=== PATIENT | male | born 1990 | race Caucasian/White ===

== ENCOUNTER 2017-03-15 11:29 | Emergency (ER) | payer OTHER ==
[2017-03-15 11:35] VITALS: TEMP 98.1
--- NOTE | 2017-03-15 11:52 | EDPHY ---
H & P Time Seen by Provider: 03/15/17 11:51 HPI/ROS: Chief complaint. Racing heart, shortness of breath HPI. 26-year-old male presents emergency department with episodes of heart racing. He describes episodes of occurring at night and beginning with eyes watering and rushing sound. He feels his heart is weak in beating fast. He thinks this may be a panic attack though does not have a history. It has occurred the last 2 nights and then he had an episode 2 weeks ago as well as about a month ago. A leaves him feeling slightly weak generally the next day. Symptoms occur at night and then basically other than weakness the next day he is fine. He has been hiking without difficulty. He wonders if it is associated with after eating. Denies cough, fever, recent travel come unusual leg symptoms. He denies chest discomfort but has occasional rambling sound in his chest. He feels that he at times short of breath. He also has a toothache. ROS Constitutional. no fever/chills, no weakness Eyes. no problems with vision ENT. Left tooth ache Cardiovascular. Rumbling in chest with fast heart beat Respiratory. Shortness of breath without cough Abdominal. no abdominal pain, no nausea/vomiting, no diarrhea . no problems urinating MS. no calf pain/swelling, no neck/back pain, no joint pain Skin. no rash Lymph. no swollen glands Neuro. no headache, no dizziness, no difficulty walking or with speech Past Medical/Surgical History: Healthy Social History: Single, daily smoker, no alcohol Smoking Status: Current every day smoker Physical Exam: General Appearance: Alert well-developed male mild distress vital signs are stable Eyes: Pupils equal and round no pallor or injection. ENT, Mouth: Mucous membranes are moist. Left 2nd premolar tender but no obvious swelling or abscess. No obvious dental trauma Respiratory: There are no retractions, lungs are clear to auscultation. Cardiovascular: Regular rate and rhythm. Gastrointestinal: Abdomen is soft and nontender, no masses, bowel sounds normal. Neurological: Awake and alert, sensory and motor exams grossly normal. Skin: Warm and dry, no rashes. Musculoskeletal: Neck is supple nontender. Extremities symmetrical, full range of motion. Psychiatric: Patient is oriented X 3, there is no agitation. Constitutional: Initial Vital Signs Temperature (C) 36.7 C 03/15/17 11:29 Heart Rate 94 03/15/17 11:29 Respiratory Rate 18 03/15/17 11:29 Blood Pressure 143/86 H 03/15/17 11:29 O2 Sat (%) 98 03/15/17 11:29 Allergies/Adverse Reactions: No Known Allergies Allergy (Unverified 03/15/17 11:35) Home Medications: Medication Instructions Recorded LORazepam [Ativan] 1 mg PO Q6-8PRN PRN #7 tab 03/15/17 Medical Decision Making - Diagnostics EKG Interpretation: EKG interpreted by me shows normal sinus rhythm with normal interval and axis. QRS is normal there is no significant ST elevation or depression. No arrhythmia. The rate is 74 Imaging Results: Imaging Impressions Chest X-Ray 03/15/17 12:06 Impression: Normal chest x-ray. One-view chest x-ray reviewed by me is normal Procedures: IV normal saline, monitor ED Course/Re-evaluation: Re-evaluation 1:25 p.m.. The patient and I discussed imaging lab EKG results. We discussed treatment plan including criteria for return importance of follow- up further evaluation. He expresses understanding and agreement Differential Diagnosis: I have considered acute coronary syndrome, pulmonary embolus, pneumonia, anxiety. - Data Points Laboratory Results: Laboratory Results 03/15/17 12:00 03/15/17 12:00 03/15/17 03/15/17 03/15/17 12:00 12:00 12:00 WBC 4.10 10^3/uL 10^3/uL (3.80-9.50) RBC 4.87 10^6/uL 10^6/uL (4.40-6.38) Hgb 15.8 g/dL g/dL (13.7-17.5) Hct 43.5 % % (40.0-51.0) MCV 89.3 fL fL (81.5-99.8) MCH 32.4 pg pg (27.9-34.1) MCHC 36.3 g/dL g/dL (32.4-36.7) RDW 11.9 % % (11.5-15.2) Plt Count 206 10^3/uL 10^3/uL (150-400) MPV 9.9 fL fL (8.7-11.7) Neut % (Auto) 39.2 % L % (39.3-74.2) Lymph % (Auto) 47.6 % H % (15.0-45.0) Good[place] % (Auto) 11.5 % % (4.5-13.0) Eos % (Auto) 1.0 % % (0.6-7.6) Baso % (Auto) 0.5 % % (0.3-1.7) Nucleat RBC Rel Count 0.0 % % (0.0-0.2) Absolute Neuts (auto) 1.61 10^3/uL L 10^3/uL (1.70-6.50) Absolute Lymphs (auto) 1.95 10^3/uL 10^3/uL (1.00-3.00) Absolute Monos (auto) 0.47 10^3/uL 10^3/uL (0.30-0.80) Absolute Eos (auto) 0.04 10^3/uL 10^3/uL (0.03-0.40) Absolute Basos (auto) 0.02 10^3/uL 10^3/uL (0.02-0.10) Absolute Nucleated RBC 0.00 10^3/uL 10^3/uL (0-0.01) Immature Gran % 0.2 % % (0.0-1.1) Immature Gran # 0.01 10^3/uL 10^3/uL (0.00-0.10) D-Dimer < 0.27 ug/mLFEU ug/mLFEU (0.00-0.50) Sodium 140 mEq/L mEq/L (134-144) Potassium 3.8 mEq/L mEq/L (3.5-5.2) Chloride 105 mEq/L mEq/L (97-110) Carbon Dioxide 22 mEq/l mEq/l (22-31) Anion Gap 13 mEq/L mEq/L (8-16) BUN 11 mg/dL mg/dL (7-23) Creatinine 0.9 mg/dL mg/dL (0.7-1.3) Estimated GFR > 60 Glucose 92 mg/dL mg/dL (70-100) Calcium 9.4 mg/dL mg/dL (8.5-10.4) Troponin I < 0.012 ng/mL ng/mL (0.000-0.034) Lipase 61 IU/L IU/L (23-300) Departure - Departure Disposition: Home, Routine, Self-Care Clinical Impression: Chest pain Qualifiers: Chest pain type: unspecified Qualified Code(s): R07.9 - Chest pain, unspecified Condition: Good Instructions: Chest Pain (ED) Additional Instructions: Easy activity. Take 1 Ativan pill with symptoms of chest discomfort and trouble breathing. Return to the emergency department for worsening chest discomfort or trouble breathing. Call Dr. Delacruz's office on Friday to move appointment up for further evaluation in the next 3-4 days. Referrals: ANA DELACRUZ [Primary Care Provider] - 2-3 days, call for appt. Prescriptions: LORazepam [Ativan] 1 mg PO Q6-8PRN PRN #7 tab PRN Reason: Anxiety
[2017-03-15 12:12] LABS: PLATELET COUNT 206 10^3/uL (150-400)
--- NOTE | 2017-03-15 12:24 | CPEKG ---
Heart Rate: 74 RR Interval: 811 P-R Interval: 140 QRSD Interval: 90 QT Interval: 380 QTC Interval: 422 P Green[place]: 57 QRS Greenwood: 80 T Wave Greenwood: 44 EKG Severity - NORMAL ECG - EKG Impression: SINUS RHYTHM Electronically Signed By: Prem Hale 15-Mar-2017 15:15:43
[2017-03-15 14:03] VITALS: BP 121/63; PULSE 54; RESP 16; O2SAT 96
== END 2017-03-15 14:01 | disposition home or self-care (01) ==
DX: R07.9 Chest pain, unspecified (principal); F17.200 Nicotine dependence, unspecified, uncomplicated